=== PATIENT | female | born 1980 | race Caucasian/White ===

== ENCOUNTER → 2016-10-10 | Outpatient (CLI) | payer MEDICARE, OTHER ==
[~2016-10-10] MED LIST: ALBU8.5H3 INH; DIVA-16 PO; IBUP-1542 PO; IBUP800T25 PO; LAMO25TA PO; LORA10TA3 PO; NAPR-260 PO; PROM6.2514 PO
[2016-10-10 11:46] LABS: ADD SCAN DIFF NO
[2016-10-10 11:59] LABS: BASOPHILS % 0.4 % (0.0-2.0); LYMPHOCYTES # 1.4 10^3/ul (0.8-2.9); LYMPHOCYTES % 29.6 % (15.0-51.0); MEAN CORPUSCULAR HEMOGLOBIN 31.3 pg (29.0-33.0); MEAN CORPUSCULAR HGB CONC 32.5 g/dl (32.0-37.0); MEAN CORPUSCULAR VOLUME 96.4 fl (82.0-101.0); MEAN PLATELET VOLUME 11.7 fl (7.4-10.4); MONOCYTE # 0.5 10^3/ul (0.3-0.9); NEUTROPHIL # 2.8 10^3/ul (1.6-7.5); NEUTROPHILS % 58.4 % (39.0-77.0); PLATELET COUNT 158 10^3/UL (140-415); POTASSIUM 4.1 mmol/L (3.5-5.1); RED BLOOD COUNT 4.15 10^6/ul (4.20-5.40); WHITE BLOOD COUNT 4.8 10^3/ul (4.8-10.8)
[2016-10-10 12:01] LABS: ALBUMIN/GLOBULIN RATIO 1.08; BILIRUBIN,INDIRECT 0.1 mg/dl (0-1.1); BILIRUBIN,TOTAL 0.1 mg/dl (0.2-1.3); CREATININE 0.77 mg/dl (0.44-1.00); TOTAL PROTEIN 7.7 g/dl (6.1-8.1)
[2016-10-10 12:02] LABS: CALCIUM 8.8 mg/dl (8.4-10.2)
== END | disposition home or self-care (01) ==
LOC: LAB 11:28
PROVIDERS: ATTEND Family Medicine Adult Medicine
DX: Z00.00 Encounter for general adult medical examination without abnormal findings (principal)
CPT/HCPCS: 80053; 80164; 85025

== ENCOUNTER 2016-11-30 13:41 | Emergency (ER) | payer MEDICARE, OTHER ==
[~2016-11-30] VITALS: Ht 167.6 cm; Wt 80.0 kg
[2016-11-30 13:43] VITALS: Ht 167.6 cm; Wt 80.0 kg
[2016-11-30] MEDS ORDERED: KETOROLAC 30 MG INJ IM STA (14:08)
--- NOTE | 2016-11-30 14:16 | ERD ---
ER Documentation Chief Complaint Date/Time DATE: 11/30/16 Chief Complaint Right rib/back pain (HEIDI DEAN PA-C) HPI The patient is a 36-year-old female with past medical history of cerebral palsy , seizure disorder and asthma, who presents the Emergency Department with complaint of right lateral rib pain and right lumbar back pain status post mechanical fall. The patient reports that due to the cerebral palsy she normally ambulates with use of her cane. She lives alone. Approximately three weeks ago the patient had a mechanical slip and fall on the hardwood floors of her home, falling onto the right side of her body. She was able to get back up, but since, has been experiencing intermittent right lumbar back pain. Yesterday , she again tripped at home, falling onto her right side. Since, she has developed pain to the right lateral ribs that worsens with palpation of the area , and pain to the right paraspinal muscles of the lumbar back. The pain is worse with movement and ambulation, and mildly improved at rest. She denies any bowel or bladder disturbances, urinary retention or lower extremity numbness, paresthesias or acute weakness. Denies saddle region anesthesia. Denies headaches, dizziness or weakness. Denies any direct head or neck trauma, syncope , loss of consciousness or seizure-like activity. Denies dysuria, hematuria or flank pain. Denies chest pain, palpitations or shortness of breath. Denies any ecchymosis, abrasions, lacerations or rash to the effected area. She rates her current pain as 5 out of 10, the notes that she has not yet taken any medication for pain relief today. She states that over the past several days she has taken several tablets of ibuprofen, with only minimal relief of pain. She is also followed up recently with her primary medical provider regarding these symptoms, I was informed that she "is fine." No other complaints at this time. (HEIDI DEAN PA-C) ROS All systems reviewed and are negative except as per history of present illness. (HEIDI DEAN PA-C) Medications Home Meds Active Scripts Orphenadrine Citrate (Norflex) 100 Mg Tablet.sa, 100 MG PO BID for 5 Days, TAB.SA Prov:MONICA LEMONS 11/30/16 Acetaminophen* (Tylophen*) 500 Mg Capsule, 1 CAP PO Q6H Y for PAIN AND OR ELEVATED TEMP, #20 CAP Prov:HEIDI DEAN PA-C 11/30/16 Ibuprofen* (Motrin*) 600 Mg Tab, 600 MG PO Q6, #30 TAB Prov:HEIDI DEAN PA-C 11/30/16 Naproxen* (Naprosyn*) 500 Mg Tablet, 500 MG PO BID Y for PAIN AND/OR INFLAMMATION, #30 TAB take with food Prov:JASON HO PA-C 08/01/16 Ibuprofen* (Motrin*) 600 Mg Tab, 600 MG PO Q8 for PAIN, #30 Prov:LOUIS VILLARREAL MD 01/13/15 Reported Medications Promethazine Hcl* (Promethazine Hcl* Syrup) 6.25 Mg/5 Ml Syrup, 6.25 MG PO Q6H Y for COUGH, ML 01/13/15 Ibuprofen* (Motrin*) 800 Mg Tab, 800 MG PO TID Y for PAIN, TAB 01/13/15 Albuterol Sulfate* (Proair HFA*) 8.5 Gm Hfa.aer.ad, 2 PUFF INH Q6H Y for WHEEZING AND SOB, INH 01/13/15 Lamotrigine* (Lamotrigine*) 25 Mg Tablet, 25 MG PO BID, TAB 01/13/15 Loratadine* (Loratadine*) 10 Mg Tablet, 10 MG PO DAILY, TAB 07/22/14 Divalproex Sodium* (Divalproex Sodium*) 500 Mg Tablet.dr, 500 MG PO BID, TAB 07/22/14 Allergies Allergies: Coded Allergies: No Known Drug Allergies (Verified Allergy, Mild, 05/11/15) PMhx/Soc History of Surgery: No Anesthesia Reaction: No Hx Neurological Disorder: Yes (seizure) Hx Respiratory Disorders: Yes (asthma) Hx Cardiac Disorders: No Hx Psychiatric Problems: No Hx Miscellaneous Medical Probl: No Hx Alcohol Use: No Hx Substance Use: No Hx Tobacco Use: No (HEIDI DEAN PA-C) Physical Exam Vitals Vital Signs Date Time Temp Pulse Resp B/P Pulse Ox O2 Delivery O2 Flow Rate FiO2 11/30/16 13:43 98.6 72 18 140/70 100 (MONICA LEMONS) Physical Exam Const: Well-developed, well-nourished, in no acute distress. Head: Atraumatic Eyes: No raccoon eyes. Normal Conjunctiva ENT: Normal External Ears, Nose and Mouth. Neck: Full range of motion. Supple. No tenderness. Resp: Clear to auscultation bilaterally. Symmetric expansion. Chest Wall: Tenderness to palpation over the right posterolateral ribs, 6-7. No crepitus. No flail chest. No skin tenting. No ecchymosis. Cardio: Regular rate and rhythm, no murmurs Abd: Soft, non tender, non distended. Normal bowel sounds. No pulsatile abdominal masses. Skin: No ecchymosis. No lacerations. No abrasions. Back: No midline or flank tenderness. Minimal tenderness to palpation over the right paraspinal muscles of the lumbar back. No step offs. No crepitus. No saddle-region anesthesia. No foot drop. Equal strength to lower extremities bilaterally. Ext: No cyanosis or edema. Moving all extremities. Distal pulses 2+ bilaterally, and equal. Neur: Awake and alert. Psych: Cooperative. (HEIDI DEAN PA-C) Results 24 hrs Current Medications Medications (Trade) Dose Ordered Sig/Nader Route PRN Reason Start Time Stop Time Status Last Admin Dose Admin Ketorolac Tromethamine (Toradol) 30 mg ONCE STAT IM 11/30/16 14:08 11/30/16 14:10 DC 11/30/16 15:22 (MONICA LEMONS) Procedures/MDM Diagnostic Tests and Interpretation: Medical Decision Making: This is a 36-year-old female presenting to the Emergency Department with right rib pain and right lumbar back pain s/p mechanical fall at home. The patient had tenderness to palpation over right posterolateral ribs and right paraspinal muscles of the lumbar back on physical examination, but otherwise, vital signs were stable. She had a negative straight leg raise with no saddle-region anesthesia noted. She exhibited no altered mental status, neurologic deficits, saddle anesthesia, bowel or bladder disturbances, incontinence, urinary retention, or lower extremity motor or sensory deficits. The differential diagnosis includes, but is not limited to, pneumothorax, cardiac contusion/trauma, rib fracture, rib contusion, pneumomediastinum, pulmonary contusion, sternum fracture, flail chest, cauda equina syndrome, epidural abscess, epidural hematoma, osteomyelitis, vertebral fracture, lumbosacral strain, herniated disc, spinal stenosis, nephrolithiasis, osteoarthritis, sciatica, spondylolisthesis, bursitis, fracture, pyelonephritis , abdominal aortic aneurysm, aortic dissection, herpes zoster, radiculopathy, myelopathy, neoplastic disease. The patient had no head injury, no loss of consciousness, minor mechanism of injury, no altered mental status or neurologic deficits, no current indication for head CT. No significant abnormalities, pneumothorax or fractures were noted on the x-rays ordered. After rest and administration of Toradol, the patient reports no new complaints , and decreased pain. Upon my review and interpretation of the patient's presentation, clinical data, and overall ER course, I believe the patient's symptoms are most consistent with rib contusion and lumbar back pain/strain s/p fall. I doubt cord compression or cauda equina syndrome, as patient is with equal, motor in bilateral lower extremities, no bowel/bladder disturbances, incontinence or retention, no saddle-anesthesia. Doubt vertebral fracture, no midline bony tenderness, no history of significant recent trauma. Doubt neoplastic disease, metastases unlikely given no night sweats, systemic symptoms. Doubt epidural abscess, patient is afebrile, with no history of IV drug use and is immunocompetent. Renal/aortic pathology not consistent with patient history or physical examination, no pulsatile abdominal masses, equal pulses bilaterally. Doubt pyelonephritis, no systemic symptoms, no flank pain, no CVA tenderness. Doubt zoster, no vesicular lesions noted. At this time, the patient is in stable condition and therefore can be discharged home with a prescription for Ibuprofen and Tylenol and strict return precautions for signs of deteriorating or worsening condition. The patient is advised to follow up with her primary care provider within 1-2 days for reevaluation and further management, or return to the ER sooner for any worsening symptoms, including chest pain, shortness of breath, diaphoresis, weakness, vomiting or abdominal pain. I shared my medical decision making and plan with the patient at length and in great detail, and the patient verbally understands and agrees with the plan for further observation and care as an outpatient. At the time of discharge, all questions were answered. (HEIDI DEAN PA-C) Upon discharge patient stated that ibuprofen and Tylenol did not help her with her pain. She states that she has a lot of muscular pain. I prescribed patient Norflex. (MONICA LEMONS) Departure Diagnosis: Primary Impression: Lumbar back pain Chronicity: acute Back pain laterality: right Sciatica presence: without sciatica Qualified Code: M54.5 - Acute right-sided low back pain without sciatica Additional Impressions: Rib pain on right side Fall Encounter type: initial encounter Qualified Code: W19.XXXA - Fall, initial encounter Condition: Stable Patient Instructions: Back Pain (Acute Or Chronic), Fall Prevention, Fall, Mechanical, Rib Contusion Additional Instructions: Call your primary care doctor TOMORROW for an appointment during the next 1-2 days for reevaluation and further management. See the doctor sooner or return here if your condition worsens before your appointment time. HEIDI DEAN PA-C Nov 30, 2016 14:16 MONICA LEMONS Nov 30, 2016 18:09
[2016-11-30] MEDS ORDERED: NAPR-260 PO (16:56)
--- NOTE | 2016-11-30 17:13 | RADRPT ---
PROCEDURE: XR Chest 1 View. CLINICAL INDICATION: Right chest pain and trauma TECHNIQUE: AP view of the chest was obtained. COMPARISON: None. FINDINGS: The cardiomediastinal silhouette is within normal limits. The lungs are hyperexpanded. No consolidat ions are identified. No pneumothorax is seen. Osseous structures are intact. IMPRESSION: Hyperexpanded, clear lungs. If there is high clinical suspicion for traumatic injury, further evaluation with CT should be consi dered. RPTAT: AA .Cody Goddard MD, MD Date Time Electronically viewed and signed by .Cody Goddard MD, on 11/30/2016 17:13 .P/
--- NOTE | 2016-11-30 17:13 | RADRPT ---
PROCEDURE: XR right ribs two views. CLINICAL INDICATION: Chest pain and trauma TECHNIQUE: Two oblique views of the right ribs were obtained. COMPARISON: None. FINDINGS: The ribs are intact. No destructive bony lesions are identified. The visualized lungs are clear. IMPRESSION: No visualized traumatic injury. If there is high clinical suspicion for traumatic injury, further evaluation with CT should be consi dered. RPTAT: AA .Cody Goddard MD, MD Date Time Electronically viewed and signed by .Cody Goddard MD, on 11/30/2016 17:13 .P/
--- NOTE | 2016-11-30 17:18 | RADRPT ---
PROCEDURE: XR Lumbar Spine 2 Views. CLINICAL INDICATION: Back pain and trauma TECHNIQUE: Lumbar spine study including AP and lateral views was performed. COMPARISON: CT August 01, 2016 FINDINGS: Straightening of the normal lordosis is identified. Minimal scoliosis convex to the left is seen. Grade 1 retrolisthesis of L5 on S1 by approximately 4 mm is seen. No fractures or destructive bony lesions are observed. Moderate intervertebral disk space narrowing is identified at L5-S1. Facet a rthrosis is noted at L5-S1 Soft tissues surrounding the spine appear normal. IMPRESSION: No visualized traumatic injury. Straightening of the normal lordosis and minimal scoliosis. These may be positional in nature. Moderate degenerative disk disease at L5-S1. Facet arthrosis in the lower lumbar spine. If there is high clinical suspicion for traumatic injury, further evaluation with repeat CT should b e considered. RPTAT: AA .Cody Goddard MD, Date Time Electronically viewed and signed by .Cody Goddard MD, on 11/30/2016 17:17 .P/
[2016-11-30] MEDS ORDERED: ACET500C5 PO (17:23)
[2016-11-30] MEDS ORDERED: IBUP-1542 PO (17:23)
[2016-11-30] MEDS ORDERED: ORPH100T PO (18:07)
== END 2016-11-30 18:26 | disposition home or self-care (01) ==
LOC: FTE 13:41
DX: M54.5 Low back pain (principal); J45.909 Unspecified asthma, uncomplicated; R07.81 Pleurodynia; Z04.3 Encounter for examination and observation following other accident
CPT/HCPCS: 71010; 71100; 72100; 96372; 99284; J1885

== ENCOUNTER 2017-07-12 11:04 | Emergency (ER) | payer MEDICARE, OTHER ==
[~2017-07-12] VITALS: Ht 160 cm; Wt 89.1 kg
[~2017-07-12 11:04] MED LIST changes: +ACET500C5 PO; +ORPH100T PO; +PROM6.25 PO; -PROM6.2514 PO
[2017-07-12 11:06] VITALS: Ht 160 cm; Wt 89.1 kg
[2017-07-12] MEDS ORDERED: IBUPROFEN 600 MG TAB PO ONE (12:00)
--- NOTE | 2017-07-12 12:35 | RADRPT ---
PROCEDURE: XR Knee. CLINICAL INDICATION: Right knee pain TECHNIQUE: 3 images of the right knee are available for review. COMPARISON: None available FINDINGS: There is no acute fracture. Alignment is normal. There is mild to moderate medial and lateral femorotibial compartment osteoarthrosis with small tessie inal osteophyte formation. Soft tissues are grossly unremarkable. IMPRESSION: 1. No radiographic evidence of acute osseous abnormality. 2. Mild to moderate medial and lateral femorotibial compartment osteoarthrosis. RPTAT: UU .Royce Stratton MD, MD Date Time Electronically viewed and signed by .Royce Stratton MD, MD on 07/12/2017 12:34 .K/
--- NOTE | 2017-07-12 12:42 | RADRPT ---
PROCEDURE: XR Chest. CLINICAL INDICATION: Pain following injury TECHNIQUE: 3 views of the right rib cage and an AP view of the chest are available for review COMPARISON: CR CHEST 11/30/2016; CR CHEST 11/30/2016 FINDINGS: No focal airspace opacity, pleural effusion or pneumothorax is seen. The cardiothymic silhouette is within normal limits for size. No acute fracture or dislocation is seen. No radiopaque foreign bod y is identified. IMPRESSION: Unremarkable chest and right rib cage x-ray series. RPTAT: HH .Shelly Bentley MD, MD Date Time Electronically viewed and signed by .Shelly Bentley MD, MD on 07/12/2017 12:42 .G/
[2017-07-12] MEDS ORDERED: IBUP-1542 PO (12:49)
--- NOTE | 2017-07-17 14:45 | ERD ---
ER Documentation Chief Complaint Chief Complaint right elbow, right facial and right leg pain s/p missed step and fell HPI This 37-year-old female presents via paramedics after falling forward on a crosswalk today. She tripped over a pothole. She has an abrasion on her right elbow complains of her right knee and right ribs. She denies any loss of consciousness, neck pain, weakness. She denies any hemoptysis or shortness of breath. She is ambulatory with discomfort. ROS All systems reviewed and are negative except as per history of present illness. Medications Home Meds Active Scripts Ibuprofen* (Motrin*) 600 Mg Tab, 600 MG PO Q6, #20 TAB Prov:ADELINA LOBO MD 07/12/17 Orphenadrine Citrate (Norflex) 100 Mg Tablet.sa, 100 MG PO BID for 5 Days, TAB.SA Prov:MONICA LEMONS 11/30/16 Acetaminophen* (Tylophen*) 500 Mg Capsule, 1 CAP PO Q6H Y for PAIN AND OR ELEVATED TEMP, #20 CAP Prov:HEIDI DEAN PA-C 11/30/16 Ibuprofen* (Motrin*) 600 Mg Tab, 600 MG PO Q6, #30 TAB Prov:HEIDI DEAN PA-C 11/30/16 Naproxen* (Naprosyn*) 500 Mg Tablet, 500 MG PO BID Y for PAIN AND/OR INFLAMMATION, #30 TAB take with food Prov:JASON HO PA-C 08/01/16 Ibuprofen* (Motrin*) 600 Mg Tab, 600 MG PO Q8 for PAIN, #30 Prov:LOUIS VILLARREAL MD 01/13/15 Reported Medications Promethazine Hcl* (Promethazine Hcl* Syrup) 6.25 Mg/5 Ml Syrup, 6.25 MG PO Q6H Y for COUGH, ML 01/13/15 Ibuprofen* (Motrin*) 800 Mg Tab, 800 MG PO TID Y for PAIN, TAB 01/13/15 Albuterol Sulfate* (Proair HFA*) 8.5 Gm Hfa.aer.ad, 2 PUFF INH Q6H Y for WHEEZING AND SOB, INH 01/13/15 Lamotrigine* (Lamotrigine*) 25 Mg Tablet, 25 MG PO BID, TAB 6/10/15 Loratadine* (Loratadine*) 10 Mg Tablet, 10 MG PO DAILY, TAB 07/22/14 Divalproex Sodium* (Divalproex Sodium*) 500 Mg Tablet.dr, 500 MG PO BID, TAB 07/22/14 Allergies Allergies: Coded Allergies: No Known Drug Allergies (Verified Allergy, Mild, 07/12/17) PMhx/Soc History of Surgery: No Anesthesia Reaction: No Hx Neurological Disorder: Yes (seizure) Hx Respiratory Disorders: Yes (asthma) Hx Cardiac Disorders: No Hx Psychiatric Problems: No Hx Miscellaneous Medical Probl: No Hx Alcohol Use: No Hx Substance Use: No Hx Tobacco Use: No Physical Exam Physical Exam Const: [], [id number]. Head: Atraumatic Eyes: Normal Conjunctiva. Eyes are PERRLA and extraocular movements intact. ENT: Normal External Ears, Nose and Mouth. Neck: Full range of motion..~ No meningismus. Resp: Clear to auscultation bilaterally Cardio: Regular rate and rhythm, no murmurs. Mild tenderness in the right chest wall without deformities or crepitance. Abd: Soft, non tender, non distended. Normal bowel sounds Skin: No petechiae or rashes Back: No midline or flank tenderness Ext: No cyanosis, or edema with small abrasion on the right elbow without bony tenderness or deformities or restricted range of motion weakness. Mild tenderness in the right patella or infrapatellar area without deformities, restricted range of motion weakness, effusion, warmth, erythema or bleeding. No calf swelling or Homans sign. Neur: Awake and alert Psych: Normal Mood and Affect Results 24 hrs Current Medications Medications (Trade) Dose Ordered Sig/Nader Route PRN Reason Start Time Stop Time Status Last Admin Dose Admin Ibuprofen (Motrin) 600 mg ONCE ONCE PO 07/12/17 12:00 07/12/17 12:01 DC 07/12/17 11:44 Procedures/MDM X-ray right knee 3V Interpreted by me: Bones: [No fracture] Joints: [No dislocation] Foreign body: [None] impression-normal right knee x-ray X-ray right ribs 2V Interpreted by me: Soft Tissue: No acute abnormalities Bones: No acute abnormalities Mediastinum/Cardiac Silhouette/Lungs: [No acute abnormalities] impression- normal right rib x-ray She was sustained a mechanical fall today and signs of contusion right knee contusion right elbow abrasion without signs of stress fracture, no signs of head injury suggestive of bleeding, fracture and underwent neck injury. She will discharged home with pain control and further observation and return precautions. The patient was stable with no new complaints during the ER course. Clinically, there is no current evidence to suggest meningitis, sepsis, acute abdomen, pneumonia, acute coronary syndrome, pulmonary embolism, or any other emergent condition appearing to require further evaluation or hospitalization. The patient should certainly return for any new or worsening symptoms per the aftercare instructions. They should otherwise follow-up with her primary care doctor for reevaluation this week. Departure Diagnosis: Primary Impression: Head injury Additional Impression: Fall with no significant injury Condition: Stable Patient Instructions: Abrasion, Fall, Mechanical, HEAD INJURY, No Wake-Up ( Adult), Rib Contusion Additional Instructions: X-rays read as normal. Recheck for new or worsening symptoms with primary care doctor. ADELINA LOBO MD Jul 17, 2017 14:45
== END 2017-07-12 13:10 | disposition home or self-care (01) ==
LOC: FTE 11:04
DX: S09.90XA Unspecified injury of head, initial encounter (principal); J45.909 Unspecified asthma, uncomplicated; W10.9XXA Fall (on) (from) unspecified stairs and steps, initial encounter; Y92.9 Unspecified place or not applicable
CPT/HCPCS: 71100; 73562

== ENCOUNTER 2017-07-30 18:20 | Emergency (ER) | payer MEDICARE, OTHER ==
[~2017-07-30] VITALS: Ht 154.9 cm; Wt 90.6 kg
[2017-07-30 18:30] VITALS: Ht 154.9 cm; Wt 90.6 kg
[2017-07-30] MEDS ORDERED: GUAI-637 PO (20:37)
--- NOTE | 2017-07-30 20:47 | ERD ---
ER Documentation Chief Complaint Chief Complaint cough, chest congestion, quigley HPI 37-year-old female is complaining of lost her voice to 3 days ago. Patient stated that she has "hayfever", and sinus congestion. Has been coughing for the past 3 weeks. She was seen here in over a week ago, was given Flonase spray. Patient also felt recently, and had a "bruised rib". She had x-ray done on her previous visit, which was negative for pneumonia, rib fracture, or pneumothorax. Patient reports feeling hot on and off, but did not check her temperature. Denies shortness of breath. Denies abdominal pain, vomiting, or diarrhea. She takes ibuprofen for pain, last dose was about 6 hours ago. ROS All systems reviewed and are negative except as per history of present illness. Medications Home Meds Active Scripts Guaifenesin* (Robitussin*) 100 Mg/5 Ml Syrup, 200 MG PO Q4H Y for COUGH, #120 ML Prov:SHILOH FOX NP 07/30/17 Ibuprofen* (Motrin*) 600 Mg Tab, 600 MG PO Q6, #20 TAB Prov:ADELINA LOBO MD 07/12/17 Orphenadrine Citrate (Norflex) 100 Mg Tablet.sa, 100 MG PO BID for 5 Days, TAB.SA Prov:MONICA LEMONS 11/30/16 Acetaminophen* (Tylophen*) 500 Mg Capsule, 1 CAP PO Q6H Y for PAIN AND OR ELEVATED TEMP, #20 CAP Prov:HEIDI DEAN PA-C 11/30/16 Ibuprofen* (Motrin*) 600 Mg Tab, 600 MG PO Q6, #30 TAB Prov:HEIDI DEAN PA-C 11/30/16 Naproxen* (Naprosyn*) 500 Mg Tablet, 500 MG PO BID Y for PAIN AND/OR INFLAMMATION, #30 TAB take with food Prov:JASON HO PA-C 08/01/16 Ibuprofen* (Motrin*) 600 Mg Tab, 600 MG PO Q8 for PAIN, #30 Prov:LOUIS VILLARREAL MD 01/13/15 Reported Medications Promethazine Hcl* (Promethazine Hcl* Syrup) 6.25 Mg/5 Ml Syrup, 6.25 MG PO Q6H Y for COUGH, ML 01/13/15 Ibuprofen* (Motrin*) 800 Mg Tab, 800 MG PO TID Y for PAIN, TAB 01/13/15 Albuterol Sulfate* (Proair HFA*) 8.5 Gm Hfa.aer.ad, 2 PUFF INH Q6H Y for WHEEZING AND SOB, INH 01/13/15 Lamotrigine* (Lamotrigine*) 25 Mg Tablet, 25 MG PO BID, TAB 01/13/15 Loratadine* (Loratadine*) 10 Mg Tablet, 10 MG PO DAILY, TAB 07/22/14 Divalproex Sodium* (Divalproex Sodium*) 500 Mg Tablet.dr, 500 MG PO BID, TAB 07/22/14 Allergies Allergies: Coded Allergies: No Known Drug Allergies (Verified Allergy, Mild, 07/12/17) PMhx/Soc Medical and Surgical Hx: pt denies Surgical Hx History of Surgery: No Anesthesia Reaction: No Hx Neurological Disorder: Yes (seizure) Hx Respiratory Disorders: Yes (asthma) Hx Cardiac Disorders: No Hx Psychiatric Problems: No Hx Miscellaneous Medical Probl: No Hx Alcohol Use: No Hx Substance Use: No Hx Tobacco Use: No Smoking Status: Never smoker Physical Exam Vitals Vital Signs Date Time Temp Pulse Resp B/P Pulse Ox O2 Delivery O2 Flow Rate FiO2 07/30/17 18:30 98.4 78 20 157/85 100 Physical Exam General: Well-developed, well-nourished, conscious and coherent, in no distress Skin: Warm and dry without rash, good texture and turgor Head: Normocephalic without evidence of trauma Eyes: Sclera and conjunctivae normal; pupils equal, round, and reactive to light; extraocular movements are intact Nose/Face: Boggy and swollen Mouth/throat: Mucous membranes are moist. Posterior pharynx clear without erythema or exudates. Voice hoarse Neck: Supple without meningismus or adenopathy. Carotids are equal. Trachea midline. No bruits or JVD Chest: Normal AP diameter. Good expansion without retractions. Nontender. Lungs are clear to auscultate bilaterally with good tidal volume Heart: Regular rate and rhythm. No murmur, rub, or gallops heard Abdomen: Soft and nontender without masses, guarding, or rebound. Bowel sounds are active. No hepatosplenomegaly Back: Without spinal or CVA tenderness Pelvis: Nontender to palpation and stable to compression Extremities: Full range of motion. Good strength bilaterally. No clubbing, cyanosis, or edema. Peripheral pulses are intact. Sensation intact Neuro: Alert and oriented 4, GCS 15. Cranial nerves grossly intact. Motor and sensory exams nonfocal. Moves all extremities. Speech clear. Gait normal Procedures/MDM Well-appearing 37-year-old female complaining of hoarse voice 2 3 days. I suspect her laryngitis is due to either a viral infection, or secondary to coughing from nasal allergies. Patient is afebrile, in no respiratory distress. Lungs are clear to auscultate. I doubt that patient has pneumonia or bronchitis. Patient advised to increase her fluid intake, and rest. Patient appears well, stable for discharge and outpatient management. Medical decision making shared with patient and family. Education provided to patient and family. Patient and family expressed understanding of the plan. Medications on discharge: Robitussin. Follow-up: Primary care provider in 2-3 days or return to ED if worse. Disclaimer: Inadvertent spelling and grammatical errors are likely due to EHR/ dictation software use and do not reflect on the overall quality of patient care. Also, please note that the electronic time recorded on this note does not necessarily reflect the actual time of the patient encounter. Departure Diagnosis: Primary Impression: Laryngitis Condition: Stable Patient Instructions: Laryngitis Referrals: [facility] YOU HAVE RECEIVED A MEDICAL SCREENING EXAM AND THE RESULTS INDICATE THAT YOU DO NOT HAVE A CONDITION THAT REQUIRES URGENT TREATMENT IN THE EMERGENCY DEPARTMENT. FURTHER EVALUATION AND TREATMENT OF YOUR CONDITION CAN WAIT UNTIL YOU ARE SEEN IN YOUR DOCTORS OFFICE WITHIN THE NEXT 1-2 DAYS. IT IS YOUR RESPONSIBILITY TO MAKE AN APPOINTMENT FOR FOLOW-UP CARE. IF YOU HAVE A PRIMARY DOCTOR --you should call your primary doctor and schedule an appointment IF YOU DO NOT HAVE A PRIMARY DOCTOR YOU CAN CALL OUR PHYSICIAN REFERRAL HOTLINE AT IF YOU CAN NOT AFFORD TO SEE A PHYSICIAN YOU CAN CHOSE FROM THE FOLLOWING [facility] [address] [place]. [facility] [address] [facility] [address] [facility] [address]. [facility] [address] [facility]. [facility] [address] Additional Instructions: Call your primary care doctor TOMORROW for an appointment during the next 2-3 days.See the doctor sooner or return here if your condition worsens before your appointment time. SHILOH FOX. SMITHA Jul 30, 2017 20:47
== END 2017-07-30 20:53 | disposition home or self-care (01) ==
LOC: FTE 18:20
DX: J04.0 Acute laryngitis (principal); J45.909 Unspecified asthma, uncomplicated
CPT/HCPCS: 99283

== ENCOUNTER 2017-11-04 10:28 | Emergency (ER) | END 2017-11-04 16:54 | disposition left against medical advice (07) ==

== ENCOUNTER 2017-11-04 23:27 | Emergency (ER) | END 2017-11-05 04:54 | disposition home or self-care (01) ==

== ENCOUNTER 2019-02-19 18:22 | Emergency (ER) | payer MEDICARE, OTHER ==
[~2019-02-19] VITALS: Ht 154.9 cm; Wt 81.8 kg
[~2019-02-19 18:22] MED LIST changes: -ALBU8.5H3 INH; +ALBU8.5H8 INH; +GUAI-637 PO; -IBUP800T25 PO; +IBUP800T48 PO; -LAMO25TA PO; +LAMO25TA8 PO; -NAPR-260 PO; +NAPR-985 PO; -PROM6.25 PO; +PROM6.2515 PO; +TRAM50TA2 PO
[2019-02-19] MEDS ORDERED: KETOROLAC 30 MG INJ IM STA (18:30)
--- NOTE | 2019-02-19 18:37 | ERD ---
ER Documentation Chief Complaint Chief Complaint HPI This is a obese 39-year-old woman with a history of frequent falls, gait ataxia, cerebral palsy who normally ambulates with a cane brought in by EMS after mechanical fall while getting off of an [employer] bus. Patient complains of right lower back pain and bilateral anterior knee pain after the fall. The patient was ambulatory at the scene upon EMS arrival, she does recall the entire episode there was no loss of consciousness, no head or neck injury, no complaints of chest pain or shortness of breath, no complaints of dizziness or nausea. Patient was transported here by EMS without further complications ROS All systems reviewed and are negative except as per history of present illness. Medications Home Meds Active Scripts Ibuprofen* (Motrin*) 600 Mg Tab, 600 MG PO Q8 PRN for PAIN AND/OR INFLAMMATION, #30 TAB Prov:LOUIS VILLARREAL MD 02/19/19 Tramadol HCl (Tramadol HCl) 50 Mg Tablet, 50 MG PO Q6 PRN for PAIN, #20 TAB Prov:RONEL SHETTY NP 11/05/17 Ibuprofen* (Motrin*) 600 Mg Tab, 600 MG PO Q6H PRN for PAIN AND OR ELEVATED TEMP, #30 TAB Prov:RONEL SHETTY NP 11/05/17 Guaifenesin* (Robitussin*) 100 Mg/5 Ml Syrup, 200 MG PO Q4H PRN for COUGH, #120 ML Prov:SHILOH FOX NP 07/30/17 Ibuprofen* (Motrin*) 600 Mg Tab, 600 MG PO Q6, #20 TAB Prov:ADELINA LOBO MD 07/12/17 Orphenadrine Citrate (Norflex) 100 Mg Tablet.sa, 100 MG PO BID for 5 Days, TAB.SA Prov:MONICA LEMONS 11/30/16 Acetaminophen* (Tylophen*) 500 Mg Capsule, 1 CAP PO Q6H PRN for PAIN AND OR ELEVATED TEMP, #20 CAP Prov:HEIDI DEAN PA-C 11/30/16 Ibuprofen* (Motrin*) 600 Mg Tab, 600 MG PO Q6, #30 TAB Prov:HEIDI DEAN PA-C 11/30/16 Naproxen* (Naprosyn*) 500 Mg Tablet, 500 MG PO BID PRN for PAIN AND/OR INFLAMMATION, #30 TAB take with food Prov:JASON HO PA-C 08/01/16 Ibuprofen* (Motrin*) 600 Mg Tab, 600 MG PO Q8 for PAIN, #30 Prov:LOUIS VILLARREAL MD 01/13/15 Reported Medications Promethazine Hcl* (Promethazine Hcl* Syrup) 6.25 Mg/5 Ml Syrup, 6.25 MG PO Q6H PRN for COUGH, ML 01/13/15 Ibuprofen* (Motrin*) 800 Mg Tab, 800 MG PO TID PRN for PAIN, TAB 01/13/15 Albuterol Sulfate* (Proair HFA*) 8.5 Gm Hfa.aer.ad, 2 PUFF INH Q6H PRN for WHEEZING AND SOB, INH 01/13/15 Lamotrigine* (Lamotrigine*) 25 Mg Tablet, 25 MG PO BID, TAB 01/13/15 Loratadine* (Loratadine*) 10 Mg Tablet, 10 MG PO DAILY, TAB 07/22/14 Divalproex Sodium* (Divalproex Sodium*) 500 Mg Tablet.dr, 500 MG PO BID, TAB 07/22/14 Allergies Allergies: Coded Allergies: No Known Drug Allergies (Verified Allergy, Mild, 07/12/17) PMhx/Soc Obesity, osteoarthritis, cerebral palsy, chronic gait ataxia, recurrent falls History of Surgery: No Anesthesia Reaction: No Hx Neurological Disorder: Yes (seizure) Hx Respiratory Disorders: Yes (asthma) Hx Cardiac Disorders: Yes (HTN) Hx Psychiatric Problems: No Hx Miscellaneous Medical Probl: No Hx Alcohol Use: No Hx Substance Use: No Hx Tobacco Use: No FmHx Family History: No diabetes Physical Exam Vitals Vital Signs Date Temp Pulse Resp B/P (MAP) Pulse Ox O2 O2 Flow FiO2 Time Delivery Rate 02/19/19 98.1 60 16 106/59 100 Room Air 21:25 (75) 02/19/19 98.1 71 16 177/88 100 18:39 (117) Per nurse's records Physical Exam GENERAL: Well-developed, well-nourished, well-hydrated, in no apparent distress, looks nontoxic in appearance HEENT: Moist mucous membranes, pink conjunctiva, no cervical spine tenderness or step-off deformities, no goiter, no jaundice or icterus, extraocular movements intact without pain. No submandibular induration, and no pharyngeal erythema LUNGS: Clear bilaterally no wheezing crackles or stridor ABDOMEN: Soft nontender protuberant abdomen, no guarding, no rigidity, no rebound, no psoas sign no obturator sign. SKIN: Warm and dry to touch, no abrasions, contusions, or hematomas, no lacerations, no ecchymosis, no target lesions, and without ulcers EXTREMITIES: No clubbing cyanosis or edema, bilateral varus deformities at the knees and mild bilateral crepitus with flexion extension at the knee although no bony tenderness noted. PSYCH: Normal affect without agitation or irritability Results 24 hrs Laboratory Tests Test 02/19/19 20:03 POC Beta HCG, Qualitative NEGATIVE Current Medications Medications Dose Sig/Nader Start Time Status Last (Trade) Ordered Route PRN Stop Time Admin Dose Reason Admin Ketorolac 30 mg ONCE STAT 02/19/19 DC Tromethamine IM 18:30 (Toradol) 02/19/19 18:31 Ibuprofen 600 mg ONCE ONCE 02/19/19 DC 02/19/19 (Motrin) PO 19:30 19:19 02/19/19 19:31 Procedures/MDM I ordered Toradol 30 mg IM x1, although patient refused and was given ibuprofen 600 mg p.o. Chest X-ray 1V Interpreted by me: Soft Tissue: No acute abnormalities Bones: No acute abnormalities Mediastinum/Cardiac Silhouette/Lungs: No acute abnormalities X-ray LS-Spine 3V Interpreted by me: Bones: No fracture, or lytic lesions Joints: No dislocation Foreign body: None X-ray right knee 3V Interpreted by me: Bones: No fracture Joints: No dislocation Foreign body: None X-ray left knee 3V Interpreted by me: Bones: No fracture Joints: No dislocation Foreign body: None Patient has had multiple prior x-rays of the lumbar spine and knees given her frequent falls, it seems these are always what she injures when she falls. She was very unhappy with ibuprofen seems she was seeking out opioid analgesics today which were deferred by me, but I did recommend she follow-up with her PMD if her pain continues or worsens here she may want to prescribe opioids as needed. Patient vital signs are normal, symptoms have improved. I did give strict instructions to return to the ED if symptoms continue or worsen, patient will otherwise follow-up with primary care physician. Patient understood instructions and agreed to plan. Disclaimer: Inadvertent spelling and grammatical errors are likely due to EHR/dictation software use and do not reflect on the overall quality of patient care. Also, please note that the electronic time recorded on this note does not necessarily reflect the actual time of the patient encounter. Departure Diagnosis: Primary Impression: Back contusion Encounter type: initial encounter Laterality: right Qualified Codes: S20.221A - Contusion of right back wall of thorax, initial encounter Additional Impressions: Knee contusion Encounter type: initial encounter Laterality: right Qualified Codes: S80.01XA - Contusion of right knee, initial encounter Lumbar back sprain Encounter type: initial encounter Qualified Codes: S33.5XXA - Sprain of ligaments of lumbar spine, initial encounter Condition: Good LOUIS VILLARREAL MD Feb 19, 2019 18:37
[2019-02-19 18:39] VITALS: Ht 154.9 cm; Wt 81.8 kg
[2019-02-19] MEDS ORDERED: IBUPROFEN 600 MG TAB PO ONE (19:30)
[2019-02-19] MEDS ORDERED: IBUP-1542 PO (19:48)
[2019-02-19 21:25] VITALS: BP 106/59; PULSE 60; RESP 16
== END 2019-02-19 21:25 | disposition home or self-care (01) ==
LOC: E/R 18:22
DX: S33.5XXA Sprain of ligaments of lumbar spine, initial encounter (principal); S20.221A Contusion of right back wall of thorax, initial encounter; S80.01XA Contusion of right knee, initial encounter; J45.909 Unspecified asthma, uncomplicated; I10 Essential (primary) hypertension; E66.9 Obesity, unspecified; R40.2142 Coma scale, eyes open, spontaneous, at arrival to emergency department; R40.2252 Coma scale, best verbal response, oriented, at arrival to emergency department; R40.2362 Coma scale, best motor response, obeys commands, at arrival to emergency department; W18.39XA Other fall on same level, initial encounter; Y92.9 Unspecified place or not applicable; Z68.34 Body mass index [BMI] 34.0-34.9, adult
CPT/HCPCS: 71045; 72100; 73562; 81025